=== PATIENT | female | born 1970 | race Caucasian/White ===

== ENCOUNTER 2019-11-19 15:49 | Emergency (ER) | payer OTHER ==
--- NOTE | 2019-11-19 17:27 | EDM.PDOC ---
ED HPI GENERAL MEDICAL PROBLEM - General Chief Complaint: ENT Problem Stated Complaint: SINUS Time Seen by Provider: 11/19/19 17:21 Source of Information: Reports: Patient History Limitations: Reports: No Limitations - History of Present Illness INITIAL COMMENTS - FREE TEXT/NARRATIVE: Patient is a 49-year-old female is complaining of having a sore throat for the last several days with some fever and bilateral earache. She denies any sinus pain or pressure. She does not have a postnasal drip. Patient has had no vomiting or diarrhea. She denies any dysuria or hematuria. She denies having a headache. She has not been taking anything for current symptoms. Duration: Day(s): (2) Location: Reports: Face Quality: Reports: Ache Severity: Mild Improves with: Reports: None Worsens with: Reports: None Associated Symptoms: Reports: No Other Symptoms headache Pain Score (Numeric/FACES): 6 - Related Data Allergies Allergy/AdvReac Type Severity Reaction Status Date / Time No Known Allergies Allergy Verified 11/19/19 16:45 Home Meds: Home Meds Diclofenac Sodium [Voltaren] 75 mg PO ASDIRECTED 11/19/19 [History] Venlafaxine [Effexor XR] 75 mg PO DAILY 11/19/19 [History] Past Medical History - Past Health History Medical/Surgical History: Denies Medical/Surgical History - Past Surgical History HEENT Surgical History: Reports: Myringotomy w Tube(s) Female Surgical History: Reports: Tubal Ligation Social & Family History - Family History Family Medical History: Noncontributory - Tobacco Use Smoking Status *Q: Never Smoker - Recreational Drug Use Recreational Drug Use: No ED ROS ENT - Review of Systems Review Of Systems: Comprehensive ROS is negative, except as noted in HPI. ED EXAM, ENT - Physical Exam Exam: See Below Exam Limited By: No Limitations General Appearance: Alert, No Apparent Distress Ears: Other (Scar tissue on both tympanic membranes from previous infections.). No: TM Bulging, TM Dullness, TM Erythema Mouth/Throat: Pharyngeal Erythema. No: Throat Swelling, Tonsillar Erythema, Tonsillar Exudates Head: Atraumatic, Normocephalic Respiratory/Chest: No Respiratory Distress Extremities: Normal Inspection Neurological: Alert Psychiatric: Normal Affect Skin: Warm, Dry Course - Vital Signs Last Recorded V/S: Last Vital Signs Temp 37.1 C 11/19/19 16:43 Pulse 77 11/19/19 16:43 Resp 16 11/19/19 16:43 BP 141/81 H 11/19/19 16:43 Pulse Ox 95 11/19/19 16:43 - Orders/Labs/Meds Orders: Active Orders 24 hr Category Date Time Status CULTURE STREP A CONFIRMATION [] Stat Lab 11/19/19 16:50 Results STREP SCRN A RAPID W CULT CONF [] Stat Lab 11/19/19 16:50 Results - Re-Assessments/Exams Free Text/Narrative Re-Assessment/Exam: 11/19/19 17:30 Influenza and strep both were negative. Departure - Departure Time of Disposition: 17:30 Disposition: Home, Self-Care 01 Clinical Impression: Acute viral pharyngitis - Discharge Information Referrals: Malgorzata Bhakta, [facility] TECHNICIAN [Primary Care Provider] - Additional Instructions: Liquid ibuprofen as instructed. Increase fluids. Return to ER if worse. Follow-up with PCP if not improving. The following information is given to patients seen in the emergency department who are being discharged to home. This information is to outline your options for follow-up care. We provide all patients seen in our emergency department with a follow-up referral. The need for follow-up, as well as the timing and circumstances, are variable depending upon the specifics of your emergency department visit. If you don't have a primary care physician on staff, we will provide you with a referral. We always advise you to contact your personal physician following an emergency department visit to inform them of the circumstance of the visit and for follow-up with them and/or the need for any referrals to a consulting specialist. The emergency department will also refer you to a specialist when appropriate. This referral assures that you have the opportunity for follow-up care with a specialist. All of these measure are taken in an effort to provide you with optimal care, which includes your follow-up. Under all circumstances we always encourage you to contact your private physician who remains a resource for coordinating your care. When calling for follow-up care, please make the office aware that this follow-up is from your recent emergency room visit. If for any reason you are refused follow-up, please contact the [facility] Emergency Department at and asked to speak to the emergency department charge nurse. Sepsis Event Note - Evaluation Sepsis Screening Result: No Definite Risk - Focused Exam Vital Signs: Vital Signs Temp Pulse Resp BP Pulse Ox 11/19/19 16:43 37.1 C 77 16 141/81 H 95 Date Exam was Performed: 11/19/19 Time Exam was Performed: 17:21 - My Orders Last 24 Hours: My Active Orders 11/19/19 16:50 CULTURE STREP A CONFIRMATION [RM] Stat STREP SCRN A RAPID W CULT CONF [RM] Stat - Assessment/Plan Last 24 Hours: My Active Orders 11/19/19 16:50 CULTURE STREP A CONFIRMATION [RM] Stat STREP SCRN A RAPID W CULT CONF [RM] Stat
== END 2019-11-19 17:45 | disposition home or self-care (01) ==
LOC: MW.ED 15:49
DX: J02.8 Acute pharyngitis due to other specified organisms (principal)
CPT/HCPCS: 87081; 87804; 87880-QW; 99282; 99283

== ENCOUNTER 2023-09-30 20:44 | Emergency (ER) | payer OTHER ==
[2023-09-30] MEDS ORDERED: Lidocaine 1% 5 ML VIAL INJECT ONE (21:41)
[2023-09-30] MEDS ORDERED: Sulfamethoxazole/Trimethoprim 800-160 MG Tab PO ONE (21:49)
== END 2023-09-30 22:24 | disposition home or self-care (01) ==
LOC: MW.ED 20:44
DX: N76.4 Abscess of vulva (principal)
CPT/HCPCS: 56405; 99282; A9270; 99283; J3490